=== PATIENT | female | born 1965 | race Hispanic/Latino ===

== ENCOUNTER 2017-02-08 21:26 | Emergency (ER) | payer OTHER ==
[~2017-02-08] VITALS: Ht 162.6 cm; Wt 89.0 kg
[2017-02-08] MEDS ORDERED: PREMARIN0.3 MG PO (21:50)
[2017-02-08] MEDS ORDERED: PROGESTERONE100 MG PO (21:51)
[2017-02-08] MEDS ORDERED: SPIRONOLACTONE25 MG PO (21:52)
[2017-02-08] MEDS ORDERED: PROZAC20 MG PO (21:52)
[2017-02-08] MEDS ORDERED: CLEOCIN300 MG PO (22:10)
[2017-02-08] MEDS ORDERED: NORCO 5/3251 TABLET PO (22:10)
[2017-02-08 22:17] VITALS: BP 132/67
== END 2017-02-08 22:20 | disposition home or self-care (01) ==
LOC: EME 21:26
DX: L02.211 Cutaneous abscess of abdominal wall (principal); Z87.891 Personal history of nicotine dependence
CPT/HCPCS: 99281; 99284